=== PATIENT | female | born 1990 | race Caucasian/White ===

== ENCOUNTER 2017-03-20 02:41 | Inpatient (IN) | payer BC, OTHER ==
[2017-03-20] VITALS (10 sets, daily range): BP systolic 94–117; BP diastolic 56–72
[~2017-03-20] VITALS: Ht 160 cm; Wt 48.6 kg
--- NOTE | 2017-03-20 02:44 | PHYS DOC ---
Past Medical History Past Medical History: Anemia Past Surgical History: No Surgical History Alcohol Use: None Drug Use: None Adult General Chief Complaint Chief Complaint: OVERDOSE HPI HPI Patient is a 27 year old female who presents with overdose. She states she took 20-25 of her Wellbutrin pills. She states she was trying to kill her self. She states she's never done this before. She denies any headache, neck stiffness , nausea vomiting or abdominal pain currently. Review of Systems Review of Systems Constitutional: Denies fever or chills [] Eyes: Denies change in visual acuity, redness, or eye pain [] HENT: Denies nasal congestion or sore throat [] Respiratory: Denies cough or shortness of breath [] Cardiovascular: No additional information not addressed in HPI [] GI: Denies abdominal pain, nausea, vomiting, bloody stools or diarrhea [] : Denies dysuria or hematuria [] Musculoskeletal: Denies back pain or joint pain [] Integument: Denies rash or skin lesions [] Neurologic: Denies headache, focal weakness or sensory changes [] Endocrine: Denies polyuria or polydipsia [] All other systems were reviewed and found to be within normal limits, except as documented in this note. Current Medications Current Medications Allergies Allergies Allergies Coded Allergies Type Severity Reaction Last Updated Verified No Known Drug Allergies 12/06/13 No Physical Exam Physical Exam Constitutional: Well developed, well nourished, no acute distress, non-toxic appearance. [] HENT: Normocephalic, atraumatic, bilateral external ears normal, oropharynx moist, no oral exudates, nose normal. [] Eyes: PERRLA, EOMI, conjunctiva normal, no discharge. [] Neck: Normal range of motion, no tenderness, supple, no stridor. [] Cardiovascular:Heart rate regular rhythm, no murmur [] Lungs & Thorax: Bilateral breath sounds clear to auscultation [] Abdomen: Bowel sounds normal, soft, no tenderness, no masses, no pulsatile masses. [] Skin: Warm, dry, no erythema, no rash. [] Back: No tenderness, no CVA tenderness. [] Extremities: No tenderness, no cyanosis, no clubbing, ROM intact, no edema. [] Neurologic: Alert and oriented X 3, normal motor function, normal sensory function, no focal deficits noted. [] Psychologic: Affect normal, judgement normal, mood normal. [] Current Patient Data Vital Signs Vital Signs Date Time Temp Pulse Resp B/P (MAP) Pulse Ox O2 Delivery O2 Flow Rate FiO2 03/20/17 05:26 118 17 111/61 (78) 97 Room Air 03/20/17 03:20 98.2 98.2 Lab Values Laboratory Tests Test 03/20/17 03:51 White Blood Count 10.3 x10^3/uL (4.0-11.0) Red Blood Count 4.40 x10^6/uL (3.50-5.40) Hemoglobin 13.7 g/dL (12.0-15.5) Hematocrit 40.0 % (36.0-47.0) Mean Corpuscular Volume 91 fL (79-100) Mean Corpuscular Hemoglobin 31 pg (25-35) Mean Corpuscular Hemoglobin Concent 34 g/dL (31-37) Red Cell Distribution Width 13.1 % (11.5-14.5) Platelet Count 234 x10^3/uL (140-400) Neutrophils (%) (Auto) 69 % (31-73) Lymphocytes (%) (Auto) 24 % (24-48) Monocytes (%) (Auto) 6 % (0-9) Eosinophils (%) (Auto) 0 % (0-3) Basophils (%) (Auto) 0 % (0-3) Neutrophils # (Auto) 7.1 x10^3uL (1.8-7.7) Lymphocytes # (Auto) 2.5 x10^3/uL (1.0-4.8) Monocytes # (Auto) 0.7 x10^3/uL (0.0-1.1) Eosinophils # (Auto) 0.0 x10^3/uL (0.0-0.7) Basophils # (Auto) 0.0 x10^3/uL (0.0-0.2) Sodium Level 141 mmol/L (136-145) Potassium Level 2.8 mmol/L (3.5-5.1) *L Chloride Level 103 mmol/L (98-107) Carbon Dioxide Level 24 mmol/L (21-32) Anion Gap 14 (6-14) Blood Urea Nitrogen 7 mg/dL (7-20) Creatinine 0.7 mg/dL (0.6-1.0) Estimated GFR (Cockcroft-Gault) 102.0 BUN/Creatinine Ratio 10 (6-20) Glucose Level 131 mg/dL (70-99) H Calcium Level 9.1 mg/dL (8.5-10.1) Magnesium Level 2.1 mg/dL (1.8-2.4) Total Bilirubin 0.4 mg/dL (0.2-1.0) Aspartate Amino Transferase (AST) 18 U/L (15-37) Alanine Aminotransferase (ALT) 18 U/L (14-59) Alkaline Phosphatase 73 U/L (46-116) Total Protein 8.0 g/dL (6.4-8.2) Albumin 4.9 g/dL (3.4-5.0) Albumin/Globulin Ratio 1.6 (1.0-1.7) Salicylates Level < 2.8 mg/dL (2.8-20.0) L Salicylate Last Dose Date Unknown Salicylate Last Dose Time Unknown Acetaminophen Level < 2.0 mcg/ml (10-30) L Acetaminophen Last Dose Date Unknown Acetaminophen Last Dose Time Unknown Ethyl Alcohol Level < 10 mg/dL (0-10) Laboratory Tests 03/20/17 03:51 Laboratory Tests 03/20/17 03:51 EKG EKG EKG upon arrival to the ER shows sinus tachycardia rate and [address] elevations or T-wave inversions that are concerning, QTC 509 ms, as interpreted by me. EKG performed at 544 shows sinus tachycardia at a rate of 112 bpm with right axis deviation, no ST elevations or T-wave inversions appreciated, QTC 477 ms, as interpreted by me. Radiology/Procedures Radiology/Procedures [] Impressions: Suicidal ideations Wellbutrin overdose History of depression Course & Med Decision Making Course & Med Decision Making Pertinent Labs and Imaging studies reviewed. (See chart for details) Patient was attempting to hurt herself with taking all of her Wellbutrin. Her EKG did have QTC prolongation at 509 ms however repeat EKG after IV fluids decreased to 477. Patient being admitted to the ICU, poison control has been contacted and they want EKGs every 3 hours and additional IV fluids. She is in stable but critical condition being admitted to ICU at this time. Spoke with Dr. Roman regarding the lesions EKG, vitals, physical exam and labs. Patient's being admitted ICU on one-to-one at this time. Total care time: 45 minutes of critical care time was used on this patient excluding procedures. Dragon Disclaimer Dragon Disclaimer This electronic medical record was generated, in whole or in part, using a voice recognition dictation system. Departure Departure Impression: Primary Impression: Overdose Disposition: ADMITTED INPATIENT Admitting Physician: Kaylin Roman Condition: CRITICAL Referrals: SURYA MCKOY MD (PCP) ALESSIA SANDHU MD Mar 20, 2017 02:44
[2017-03-20 04:01] LABS: BASO % 0 % (0-3); EOS % 0 % (0-3); HEMOGLOBIN 13.7 g/dL (12.0-15.5); LYMPH # 2.5 x10^3/uL (1.0-4.8); LYMPH % 24 % (24-48); MEAN CORPUSCULAR HEMOGLOBIN 31 pg (25-35); MEAN CORPUSCULAR HGB CONC 34 g/dL (31-37); MEAN CORPUSCULAR VOLUME 91 fL (79-100); MONO % 6 % (0-9); NEUT % 69 % (31-73); PLATELET COUNT 234 x10^3/uL (140-400); RED CELL DISTRIBUTION WIDTH 13.1 % (11.5-14.5); WHITE BLOOD COUNT 10.3 x10^3/uL (4.0-11.0)
[2017-03-20 04:22] LABS: ALBUMIN 4.9 g/dL (3.4-5.0); ALBUMIN/GLOBULIN RATIO 1.6 (1.0-1.7); CALCIUM 9.1 mg/dL (8.5-10.1); CREATININE 0.7 mg/dL (0.6-1.0); TOTAL BILIRUBIN 0.4 mg/dL (0.2-1.0)
[2017-03-20 04:46] LABS: ETHANOL < 10 mg/dL (0-10)
[2017-03-20 04:48] LABS: POTASSIUM 2.8 mmol/L (3.5-5.1)
[2017-03-20] MEDS ORDERED: IV NORMAL SALINE 1000ML BAG 1,000 ML IV ONE ×2 (06:00→07:00)
[2017-03-20] MEDS ORDERED: POTASSIUM CHLORIDE 20 MEQ TABLET.ER. PO ONE ×2 (06:00→11:30)
[2017-03-20 07:27] LABS: BILIRUBIN,URINE NEGATIVE (NEG); GLUCOSE,URINE NEGATIVE (NEG); NITRITE,URINE NEGATIVE (NEG); PROTEIN,URINE NEGATIVE (NEG-TRACE); UROBILINOGEN,URINE 0.2 mg/dL (0.2 mg/dL)
[2017-03-20 07:37] LABS: SQUAMOUS EPITHELIAL CELL,UR MANY /LPF
[2017-03-20 07:38] LABS: BACTERIA,URINE MANY /HPF (0-FEW); WBC,URINE 20-40 /HPF (0-4)
[2017-03-20 07:39] LABS: RBC,URINE OCC /HPF (0-2)
[2017-03-20] MEDS ORDERED: GABA-585 PO (08:45)
[2017-03-20] MEDS ORDERED: BUPR150T6 PO (08:45)
[2017-03-20] MEDS ORDERED: ONDANSETRON PF 4 MG/2 ML VIAL. IV PRN (10:30)
--- NOTE | 2017-03-20 10:50 | EKG ---
[facility] [address] [place] [address] Test Date: 2017-03-20 Test Time: 10:47:45 Pat Name: IVÁN HERNANDEZ Department: Room: Gender: F Group Billing Coordinator: : 1990 Requested By: ALESSIA SANDHU Order Number: [id number] Reading MD: Measurements Intervals [place] Rate: 117 P: 2 [place]: 116 QRS: 36 QRSD: 94 T: 45 QT: 330 QTc: 465 Interpretive Statements SINUS TACHYCARDIA INCOMPLETE RIGHT BUNDLE BRANCH BLOCK NO SPECIFIC ECG ABNORMALITIES RI6.01 No previous ECG available for comparison
--- NOTE | 2017-03-20 11:27 | HP ---
ADMIT DATE: 03/20/2017 CHIEF COMPLAINT: Overdose of Wellbutrin. HISTORY OF PRESENT ILLNESS: The patient is a pleasant 27-year-old female who took 24 tablets of her Wellbutrin. She has done this before. She suffers from depression. Currently, she is in the middle of a divorce. I have discussed the case with the Emergency Room physician. We are going to admit the patient and consult the psychiatric assessment team. PAST MEDICAL HISTORY: Anxiety, depression, previous suicide attempts. ALLERGIES: None. FAMILY HISTORY: Diabetes. SOCIAL HISTORY: She works. She has one 9-year-old child. She is for 1 year. MEDICATIONS: Reviewed. REVIEW OF SYSTEMS: GENERAL: No history of weight change, weakness or fevers. SKIN: No bruising, hair changes or rashes. EYES: No blurred, double or loss of vision. NOSE AND THROAT: No history of nosebleeds, hoarseness or sore throat. HEART: No history of palpitations, chest pain or shortness of breath on exertion. LUNGS: Denies cough, hemoptysis, wheezing or shortness of breath. GASTROINTESTINAL: Denies changes in appetite, nausea, vomiting, diarrhea or constipation. GENITOURINARY: No history of frequency, urgency, hesitancy or nocturia. NEUROLOGIC: She complains of weakness. PSYCHIATRIC: She complains of depression. ENDOCRINE: No history of heat or cold intolerance, polyuria or polydipsia. EXTREMITIES: Denies muscle weakness, joint pain, pain on walking or stiffness. PHYSICAL EXAMINATION: VITAL SIGNS: Stable. GENERAL: She is alert, cooperative. HEART: Normal S1, S2. LUNGS: Clear. ABDOMEN: Soft. EXTREMITIES: No edema. SKIN: No rashes. ENDOCRINE: No thyromegaly. LYMPHATICS: No cervical nodes. HEMATOPOIETIC: No bruising. NEUROLOGICAL: She is generally alert and oriented, but she does appear a little shaky and weak. PSYCHIATRIC: She complains of depression. ASSESSMENT AND PLAN: Suicide attempt secondary to depression. The patient has been admitted to the ICU. The half-life of Wellbutrin is about 25 hours, it will take several days to get out of her blood stream. For now, we are going to do ICU monitoring, IV fluids. She does have a white count elevation. We will go ahead and put her on empiric antibiotics. Consult the psychiatric assessment team. I discussed the case extensively with the nurse and the patient's [id number]. The plan is to get her to an Inpatient Psych Unit. YARELY EDEN DO DR: LINDEN/nora JOB#: [id number] / [id number]
--- NOTE | 2017-03-20 16:18 | EKG ---
[facility] [address] [place] [address] Test Date: 2017-03-20 Test Time: 16:17:18 Pat Name: IVÁN HERNANDEZ Department: Room: 116 1 Gender: F Restoration Ecologist: : 1990 Requested By: YARELY EDEN Order Number: [id number] Reading MD: Measurements Intervals [place] Rate: 111 P: -84 [place]: 108 QRS: 39 QRSD: 94 T: 36 QT: 328 QTc: 449 Interpretive Statements SINUS TACHYCARDIA NO SPECIFIC ECG ABNORMALITIES RI6.01 No previous ECG available for comparison
--- NOTE | 2017-03-21 07:20 | EKG ---
[facility] [address] [place] [address] Test Date: 2017-03-20 Test Time: 05:28:39 Pat Name: IVÁN HERNANDEZ Department: Room: 116 1 Gender: F Fiction And Nonfiction Author: : 1990 Requested By: YARELY EDEN Order Number: [id number] Reading MD: Measurements Intervals [place] Rate: 97 P: 18 PA: 192 QRS: 36 QRSD: 88 T: 66 QT: 362 QTc: 464 Interpretive Statements SINUS RHYTHM QRS(T) CONTOUR ABNORMALITY CONSIDER ANTEROSEPTAL MYOCARDIAL DAMAGE CONSIDER INFERIOR MYOCARDIAL DAMAGE T ABNORMALITY IN HIGH LATERAL LEADS ABNORMAL ECG RI6.01 No previous ECG available for comparison
--- NOTE | 2017-03-21 07:20 | EKG ---
[facility] [address] [place] [address] Test Date: 2017-03-20 Test Time: 03:42:10 Pat Name: IVÁN HERNANDEZ Department: Room: 116 1 Gender: F Surveillance Technician: : 1990 Requested By: YARELY EDEN Order Number: [id number] Reading MD: Measurements Intervals [place] Rate: 135 P: -110 DC: 60 QRS: 15 QRSD: 94 T: 59 QT: 336 QTc: 509 Interpretive Statements SUPRAVENTRICULAR TACHYCARDIA QRS(T) CONTOUR ABNORMALITY CONSIDER ANTEROLATERAL MYOCARDIAL DAMAGE POSSIBLY ABNORMAL ECG RI6.01 No previous ECG available for comparison
== END 2017-03-20 17:30 | disposition home or self-care (01) | DRG 918 ==
LOC: ER 02:41 → 1 WEST ICU 05:30
PROVIDERS: ADMIT Internal Medicine; ATTEND Internal Medicine
DX: T43.292A Poisoning by other antidepressants, intentional self-harm, initial encounter (principal); D72.829 Elevated white blood cell count, unspecified; F32.9 Major depressive disorder, single episode, unspecified; F41.9 Anxiety disorder, unspecified; Z83.3 Family history of diabetes mellitus; Z91.5 Personal history of self-harm; Y92.89 Other specified places as the place of occurrence of the external cause
CPT/HCPCS: 36415; 80053; 80329; 81001; 83735; 85025; 87086; 87641; 93005; G0480; J2405; J7030; 97530

== ENCOUNTER → 2019-11-02 | Outpatient (CLI) | payer BC ==
[2017-03-20 17:00] VITALS: BP 105/67
[~2019-11-02] MED LIST: BUPR150T6 PO; GABA-585 PO
--- NOTE | 2019-11-02 15:29 | KCIC ---
BRAIN W/O CONTRAST History:Reason: CEPHALGIA, NAUSEA, PARESTHESIA / Spl. Instructions: / History: Severe headaches a few months, dizziness, nausea, hx. migraines. Technique: Multiplanar, multi sequential MR imaging was performed of the brain without contrast. Comparison: None Findings: Artifact from dental hardware and significantly degrades evaluation of multiple sequences especially the diffusion-weighted and gradient weighted sequences. No definite acute infarct although diffusion-weighted sequences significantly degraded. No intracranial hemorrhage. No mass effect. No hydrocephalus. Orbits and paranasal sinuses are not well evaluated due to dental hardware. Mastoid air cells are clear. Impression: 1. Evaluation degraded by dental hardware artifact. 2. No acute intracranial abnormality. Electronically signed by: Kenny Marr DO (11/02/2019 3:26 PM) [id number]
== END | disposition home or self-care (01) ==
LOC: KCIC MRI 13:34
PROVIDERS: ATTEND Family Medicine
DX: R51 Headache (principal); R20.2 Paresthesia of skin; R11.0 Nausea
CPT/HCPCS: 70551

== ENCOUNTER → 2019-12-15 | Outpatient (CLI) | payer BC ==
[2017-03-20 17:00] VITALS: BP 105/67
--- NOTE | 2019-12-15 14:28 | KCIC ---
EXAM: Bilateral knees, 3 views. HISTORY: Pain. COMPARISON: None. FINDINGS: 3 views of both knees are obtained. There is no fracture, dislocation or subluxation. There is no joint effusion. IMPRESSION: No acute osseous finding. Electronically signed by: Manjula Chris MD (12/15/2019 2:26 PM) [facility]
== END | disposition home or self-care (01) ==
LOC: KCIC 11:20
PROVIDERS: ATTEND Family Medicine
DX: M25.561 Pain in right knee (principal); M25.562 Pain in left knee
CPT/HCPCS: 73562